=== PATIENT | female | born 1965 | race Caucasian/White ===

== ENCOUNTER → 2017-10-09 | Outpatient (CLI) | payer OTHER ==
[~2017-10-09] MED LIST: ADVINUNK; AMITZA; B VITAMIN; CMD5 PO; CMD75 PO; LRT5 PO; MODA1TAB PO; MRLP17 PO; PROM25TA PO; PROP20TA67 PO; SIMV40TA2 PO; TOPI100T20 PO; [UNRECOGNIZED DRUG - OTHER] PO
== END | disposition home or self-care (01) ==
LOC: C.LABMFLN 08:57
PROVIDERS: ATTEND Family Medicine
DX: Z00.00 Encounter for general adult medical examination without abnormal findings (principal); I63.9 Cerebral infarction, unspecified